=== PATIENT | female | born 1975 | race Caucasian/White ===

== ENCOUNTER 2019-03-16 05:14 | Day surgery (SDC) | payer MEDICAID ==
[~2019-03-16] VITALS: Ht 167.6 cm; Wt 74.1 kg
[2019-03-16] VITALS (10 sets, daily range): BP systolic 117–159; BP diastolic 63–87; Ht 167.6 cm; Wt 74.1 kg
[~2019-03-16 05:14] MED LIST: BUPROPION HCL200 M1 PO; CARDIZEM 90 MG90 MG PO; CYCLOBENZAPRINE10 MG PO; LEXAPRO10 MG PO; METOPROLOL TART50 MG PO; NEURONTIN 300300 MG PO; PREDNISONE5 MG PO
[2019-03-16 05:32] LABS: HEMATOCRIT 37.4 % (36.0-48.0); HEMOGLOBIN 12.7 g/dL (12-16); MCH 33.4 pg (26.0-34.0); MCV 98.4 fL (80.0-100.0); MEAN PLATELET VOLUME 10.2 fL (7.4-10.4); RBC 3.8 10x6/uL (4.00-5.40); RDW 13.7 % (11.5-14.5); WBC 16.7 10x3/uL (4.8-10.8)
[2019-03-16 05:49] LABS: ANION GAP 12.8 mmol/L (8-16); CALCIUM 9.3 mg/dL (8.5-10.1); CARBON DIOXIDE 27.1 mmol/L (21.0-32.0); POTASSIUM - SERUM 3.9 mmol/L (3.5-5.1)
--- NOTE | 2019-03-16 07:01 | NUR ---
DR MERRILL NOTIFIED AND REVIEWED PT's BEHAVIOR AND ASSESSMENT RESULTS, PT IS A LOW RISK PER DR MERRILL. DR MERRILL STATED TO GIVE RESOURCES TO PT AT TIME OF DISCHARGE. NO FURTHER ORDERS AT THIS TIME. RESOURCES REVIEWED WITH PT AND SHE VERBALIZED UNDERSTANDING.
--- NOTE | 2019-03-16 09:50 | NUR ---
IS AT BEDSIDE RIGHT NOW. V.O TO GIVE 1G OF MAGNESIUM SULFATE IV AT THIS TIME. V.O READ BACK CORRECT
[2019-03-16 09:56] LABS: APPEARANCE HAZY (CLEAR); BACTERIA FEW /hpf (NONE SEEN); BILIRUBIN NEGATIVE (NEGATIVE); COLOR YELLOW (YELLOW); EPITHELIAL CELLS OCC /hpf (0-5); GLUCOSE NEGATIVE (NEGATIVE); HYALINE CAST RARE /lpf (NONE SEEN); KETONE NEGATIVE (NEGATIVE); MUCUS <1+ /lpf (NONE SEEN); NITRITE NEGATIVE (NEGATIVE); PROTEIN NEGATIVE (NEGATIVE); RED CELLS - URINE OCC /hpf (0-5); SPECIFIC GRAVITY 1.015 (1.005-1.020); UROBILINOGEN NORMAL (NORMAL); WHITE CELLS - URINE RARE /hpf (0-5)
--- NOTE | 2019-03-16 10:30 | NUR ---
PATIENT RECEIVED FROM PACU. NO TRACHEAL DEVIATION. VS STABLE. ICE WATER REQUESTED AND RECIEVED. CL IN REACH. WCTM
--- NOTE | 2019-03-16 10:46 | OP ---
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 PROCEDURE: Anterior cervical discectomy and fusion with a C5-C6 with PEEK interbody cage, bone stem cells, separate anterior cervical plate and screws from [facility]. SURGEON: Vinayak Aguilar MD PRIMARY CARE DOCTOR: Dr. Doyle DESCRIPTION AND TECHNIQUE: After induction of general endotracheal anesthesia, the patient was positioned supine on the operating table. Neck was prepped and draped in usual sterile fashion. Fluoroscopic x-ray and spinal needle localized the C5-C6 interspace and a Fortine dissector. After this 1:100,000 epinephrine with 1% lidocaine was infiltrated in the soft tissues and a transverse skin incision was carried out from the midline to the sternocleidomastoid muscle. The platysma was divided with Bovie cautery. Then, using blunt and sharp dissection with Metzenbaum scissors, I proceeded in the avascular plane medial to the carotid sheath. The longus colli muscles at C5 and C6 were elevated and a self-retaining retractor was placed deep in longus colli muscles. Osteophytes were removed anteriorly with Adson rongeurs. Serafina distracting pins were placed in the bodies of C5 and C6. Disc material was removed with pituitary rongeurs and curettes. Osteophytes drilled away posteriorly with Midas-Nasim drill and under microscopic illumination. The posterior longitudinal ligament was removed with Cloward rongeurs. Following this, the dura was decompressed well. A 6 mm PEEK interbody cage was placed in the disc space under distraction. Prior to this, it was filled with Tonia bone stem cells. A separate [facility] anterior cervical plate and screws was used to span the C5-C6 interspace. Locking cams were tightened down over the screw heads. Meticulous hemostasis was maintained throughout the wound. Wound was irrigated with copious amounts of Ancef irrigant solution. The platysma and subdermal layer closed with interrupted 3-0 Vicryl suture. The skin was reapproximated with Steri-Strips and benzoin. A sterile dressing was applied to the wound. The patient was awakened in good condition. Fluoroscopic x-ray confirmed good position of the hardware. All counts were reported as correct. ESTIMATED BLOOD LOSS: Minimal. TRANSINT:[id number] Voice Confirmation ID: [id number] DOCUMENT ID: [id number] OPERATIVE REPORT [id number] ADAM MCCARTNEY JOHN MD at 1046 CC: [id number] DICTATION DATE: 03/16/19 0856 HEAD OF DATA: 03/16/19 0911 [id number] [place] [address]
--- NOTE | 2019-03-16 12:30 | NUR ---
NO TRACHEAL DEVIATION. CO 6/10 PAIN. CL IN REACH. REMOVED BP CUFF. VS STABLE. CL IN REACH WCTM
--- NOTE | 2019-03-16 12:48 | NUR ---
The patient scores low on the suicide assessment today and she does not require a 1:1 observation.
--- NOTE | 2019-03-16 14:30 | NUR ---
NO TRACHEAL DEVIATION. ASSISTED PATIENT TO THE BATHROOM AND TO PUT ON HER HOME CLOTHS. CL IN REACH. NO FURTHER NEEDS AT THIS TIME. WCTM
--- NOTE | 2019-03-16 19:00 | NUR ---
BEDSIDE REPORT RECEIVED AND CARE OF PT ASSUMED. PT LYING IN [place] POSITION WATCHING TV. IV TO LEFT HAND PATENT WITH D51/2 NS INFUSING AT 50 ML/HR. CLEAR DRESSING TO NECK CLEAN AND DRY. WILL MONITOR FOR NEEDS.
--- NOTE | 2019-03-16 19:50 | NUR ---
PT AMBULATING IN THE HALLWAY AT THIS TIME.
--- NOTE | 2019-03-16 20:30 | NUR ---
HS MEDICATIONS GIVEN TO INCLUDE NORCO PER REQUEST FOR PAIN. WILL MONITOR FOR EFFECTIVENESS.
--- NOTE | 2019-03-16 21:30 | NUR ---
PT C/O PAIN INCREASED TO 10/10 AT THIS TIME...MOANING AND FIGITING. GAVE MORPHINE 2 MG IVP PER PRN ORDER. WILL CONTINUE TO MONITOR FOR NEEDS.
[2019-03-17 01:24] VITALS: BP 114/65
[2019-03-17 05:44] VITALS: BP 118/65
--- NOTE | 2019-03-17 08:00 | NUR ---
PATIENT UP AMBULATING IN [address] [address] AT THIS TIME WITH NO PROBLEMS.
--- NOTE | 2019-03-17 08:30 | NUR ---
PATIENT AMBULATING IN [place] WITH NO PROBLEMS.
[2019-03-17 09:04] VITALS: BP 136/65
--- NOTE | 2019-03-17 12:03 | NUR ---
DR. AGUILAR INTO SEE PATIENT. READY TO DC.
[2019-03-17] MEDS ORDERED: HYDROCODON-ACE1 EA10 PO (12:26)
--- NOTE | 2019-03-17 14:40 | NUR ---
PATIENT RECIEVED DC INSTRUCTIONS AND PRESCRIPTION. VERBALIZED UNDESTANDING. NO QUESTIONS AT TIME. FAMILY AT BEDSIDE. WANTED TO WALK OUT. AMBULATED WITH PERSONAL BELONGINGS BY FAMILY TO PRIVATE VEHICLE.
== END 2019-03-17 14:40 | disposition home or self-care (01) ==
LOC: D.MS 05:14 → D.OPS 05:14 → D.PAN 07:30 → D.OPS 07:30 → D.MS 09:30 → D.PAN 13:15 → D.OPS 13:15
PROVIDERS: Anesthesiology; ATTEND Neurological Surgery
DX: M50.122 Cervical disc disorder at C5-C6 level with radiculopathy (principal); M25.78 Osteophyte, vertebrae

== ENCOUNTER → 2019-06-01 11:36 | Outpatient (CLI) | payer MEDICAID ==
[2019-03-16 11:09] VITALS: BMI 26.3
[~2019-06-01 11:36] MED LIST changes: +HYDROCODON-ACE1 EA10 PO
== END | disposition home or self-care (01) ==
LOC: D.RAD 11:36
PROVIDERS: ATTEND Neurological Surgery
DX: R13.10 Dysphagia, unspecified (principal)